=== PATIENT | female | born 2000 | race Caucasian/White ===

== ENCOUNTER 2020-10-24 08:55 | Inpatient (IN) | payer MEDICAID ==
[~2020-10-24] VITALS: Ht 170.2 cm; Wt 95.2 kg
[2020-10-24] MEDS ORDERED: PLEASE ENTER HEIGHT AND WEIGHT MC SCH (10:30)
[2020-10-24] MEDS ORDERED: POLYETHYLENE GLYCOL 17 GM PACKET PO PRN (10:30)
[2020-10-24] MEDS ORDERED: BISACODYL 10 MG SUPP PR PRN (10:30)
[2020-10-24] MEDS ORDERED: DOCUSATE 100 MG CAPSULE PO PRN (10:30)
[2020-10-24] MEDS ORDERED: ONDANSETRON ODT 4 MG PO PRN (10:30)
[2020-10-24 10:55] VITALS: BP 118/80
[2020-10-24] MEDS ORDERED: PRAZ5CAP2 PO (12:25)
[2020-10-24] MEDS ORDERED: ARIP10TA33 PO (12:25)
[2020-10-24] MEDS ORDERED: TRAZ-96 PO (12:25)
[2020-10-24] MEDS ORDERED: hydrOXyzine 10MG TABLET PO PRN (12:30)
[2020-10-24] MEDS ORDERED: HYDROXYZINE PAMOATE 50MG CAP ONE (12:48)
[2020-10-24] MEDS ORDERED: HYDROXYZINE PAMOATE 50MG CAP PO PRN (13:00)
[2020-10-24 19:17] VITALS: BP 113/72
[2020-10-24] MEDS: ARIPIPRAZOLE 10 MG TABLET PO SCH (21:06)
[2020-10-24] MEDS: OXCARBAZEPINE 150 MG TABLET PO SCH (21:06)
[2020-10-24] MEDS: TRAZODONE 50MG TABLET PO SCH (21:06)
[2020-10-24] MEDS: ACETAMINOPHEN 325 MG TABLET PO PRN (21:06)
[2020-10-24] MEDS: PRAZOSIN 5 MG CAPSULE PO SCH (21:06)
[2020-10-25 05:48] LABS: BASOPHILS % (AUTO) 1 % (0-1); EOSINOPHILS % (AUTO) 2 % (1-7); LYMPHOCYTES % (AUTO) 43 % (22-44); MEAN CORPUSCULAR HEMOGLOBIN 29.9 pg (27.0-34.8); MEAN CORPUSCULAR HGB CONC 33.8 g/dL (32.4-35.8); MEAN PLATELET VOLUME 7.3 fL (7.4-10.4); MONOCYTES % (AUTO) 11 % (2-9); NEUTROPHILS % (AUTO) 43 % (42-75); PLATELET COUNT 371 x10^3/uL (130-400); RED BLOOD COUNT 4.63 x10^6/uL (3.82-5.3)
[2020-10-25 06:03] LABS: CHLORIDE 108 mmol/L (98-107)
[2020-10-25 06:32] LABS: ALANINE AMINOTRANSFERASE 28 U/L (12-78); ALBUMIN 3.4 g/dL (3.4-5.0); ALKALINE PHOSPHATASE 51 U/L (45-117); ANION GAP 6 mmol/L (5-15); BILIRUBIN,TOTAL 0.4 mg/dL (0.2-1.0); CALCIUM 9.1 mg/dL (8.5-10.1); CHOL/HDL RATIO 2.8; CHOLESTEROL, TOTAL 161 mg/dL (140-239); CREATININE 0.83 mg/dL (0.55-1.02); HDL CHOL % 35 % (28-40); HDL CHOLESTEROL (DIRECT) 57 mg/dL (40-60); LDL CHOLESTEROL,CALCULATED 87 mg/dL (54-169); LDL/HDL RATIO 1.5 (0.5-3.0); TOTAL PROTEIN 6.8 g/dL (6.4-8.2); TRIGLYCERIDES 83 mg/dL (50-200); VLDL CHOLESTEROL 17 mg/dL (0-25)
[2020-10-25 07:57] VITALS: BP 104/67
[2020-10-25] MEDS: OXCARBAZEPINE 150 MG TABLET PO SCH ×2 (08:23→20:51)
[2020-10-25] MEDS: CYANOCOBALAMIN 1,000 MCG TABLET PO SCH (08:25)
[2020-10-25] MEDS: HYDROXYZINE PAMOATE 50MG CAP PO PRN (11:16)
[2020-10-25 12:51] LABS: HCG UR SG 1.025 (1.003-1.030)
[2020-10-25 12:53] LABS: MICROSCOPIC INDICATED
[2020-10-25 19:28] VITALS: BP 131/67
[2020-10-25] MEDS: ACETAMINOPHEN 325 MG TABLET PO PRN (19:46)
[2020-10-25] MEDS: ARIPIPRAZOLE 10 MG TABLET PO SCH (20:51)
[2020-10-25] MEDS: PRAZOSIN 5 MG CAPSULE PO SCH (20:52)
[2020-10-25] MEDS: TRAZODONE 50MG TABLET PO SCH (21:34)
[2020-10-26 07:21] VITALS: BP 102/65
[2020-10-26] MEDS: CYANOCOBALAMIN 1,000 MCG TABLET PO SCH (09:01)
[2020-10-26] MEDS: OXCARBAZEPINE 150 MG TABLET PO SCH ×2 (09:01→22:05)
[2020-10-26] MEDS: ACETAMINOPHEN 325 MG TABLET PO PRN ×2 (09:01→17:36)
[2020-10-26 10:10] VITALS: BP 102/65
[2020-10-26 19:27] VITALS: BP 109/70
[2020-10-26] MEDS: TRAZODONE 50MG TABLET PO SCH (22:05)
[2020-10-26] MEDS: PRAZOSIN 5 MG CAPSULE PO SCH (22:06)
[2020-10-26] MEDS: ARIPIPRAZOLE 10 MG TABLET PO SCH (22:06)
[2020-10-27 07:44] VITALS: BP 95/60
[2020-10-27] MEDS: ACETAMINOPHEN 325 MG TABLET PO PRN (09:02)
[2020-10-27] MEDS: OXCARBAZEPINE 150 MG TABLET PO SCH ×2 (09:02→21:59)
[2020-10-27] MEDS: CYANOCOBALAMIN 1,000 MCG TABLET PO SCH (09:02)
[2020-10-27 11:43] VITALS: BP 97/65
[2020-10-27 19:47] VITALS: BP 103/58
[2020-10-27] MEDS: TRIAMCINOLONE CRM 0.1%, 15GM TP SCH (21:59)
[2020-10-27] MEDS: TRAZODONE 50MG TABLET PO SCH (21:59)
[2020-10-27] MEDS: ARIPIPRAZOLE 10 MG TABLET PO SCH (21:59)
[2020-10-27] MEDS: PRAZOSIN 5 MG CAPSULE PO SCH (21:59)
[2020-10-28 07:41] VITALS: BP 102/51
[2020-10-28] MEDS: ACETAMINOPHEN 325 MG TABLET PO PRN ×2 (08:46→15:55)
[2020-10-28] MEDS: CYANOCOBALAMIN 1,000 MCG TABLET PO SCH (08:46)
[2020-10-28] MEDS: OXCARBAZEPINE 150 MG TABLET PO SCH ×2 (08:46→22:02)
[2020-10-28] MEDS: TRIAMCINOLONE CRM 0.1%, 15GM TP SCH ×3 (09:00→22:04)
[2020-10-28] MEDS ORDERED: ARIP10TA33 PO (14:35)
[2020-10-28] MEDS ORDERED: Cyanocobalamin PO (14:35)
[2020-10-28] MEDS ORDERED: OXCA150T18 PO (14:35)
[2020-10-28 19:26] VITALS: BP 118/72
[2020-10-28] MEDS: HYDROXYZINE PAMOATE 50MG CAP PO PRN (20:45)
[2020-10-28] MEDS: ARIPIPRAZOLE 10 MG TABLET PO SCH (22:02)
[2020-10-28] MEDS: TRAZODONE 50MG TABLET PO SCH (22:02)
[2020-10-28] MEDS: PRAZOSIN 5 MG CAPSULE PO SCH (22:02)
[2020-10-29 07:24] VITALS: BP 98/68
[2020-10-29] MEDS: OXCARBAZEPINE 150 MG TABLET PO SCH (08:32)
[2020-10-29] MEDS: CYANOCOBALAMIN 1,000 MCG TABLET PO SCH (08:32)
[2020-10-29] MEDS: TRIAMCINOLONE CRM 0.1%, 15GM TP SCH (09:49)
== END 2020-10-29 11:09 | disposition home or self-care (01) | DRG 885 ==
LOC: 3E 10:17
PROVIDERS: ADMIT Psychiatry & Neurology Psychosomatic Medicine; ATTEND Psychiatry & Neurology Psychosomatic Medicine
DX: F25.0 Schizoaffective disorder, bipolar type (principal); R45.850 Homicidal ideations; G43.909 Migraine, unspecified, not intractable, without status migrainosus; F60.3 Borderline personality disorder; L40.9 Psoriasis, unspecified; Z79.899 Other long term (current) drug therapy; Z88.2 Allergy status to sulfonamides; Z88.8 Allergy status to other drugs, medicaments and biological substances
CPT/HCPCS: 36415; 71045; 80053; 80061; 81001; 81025; 82607; 84439; 84443; 85025; 87086; 93005

== ENCOUNTER 2020-10-30 14:41 | Emergency (ER) | payer MEDICAID ==
[~2020-10-30] VITALS: Ht 175.3 cm; Wt 95.2 kg
[~2020-10-30 14:41] MED LIST: ARIP10TA33 PO; Cyanocobalamin PO; OXCA150T18 PO; PRAZ5CAP2 PO; TRAZ-96 PO
--- NOTE | 2020-10-30 14:59 | NUR ---
BIBA AFTER ADMITTING TO THOUGHTS OF WANTING TO KILL HERSELF, WITH NO PLAN, AND THOUGHTS OF WANTING TO KILL HER SISTER IN LAW BY STABBING HER TO WITH A KITCHEN KNIFE. PT RECENTLY D/C FROM [facility] FOR [facility]. HX BIPOLAR, SKIZOPHRENIA. PT ALSO HAS LAC ON L. HEEL FROM GETTING ON AMBULANCE. DR. NIÑO TO BEDSIDE FOR EVALUAITON. Addendum: 10/30/20 at 1514 by ZEESHAN BIBA AFTER ADMITTING TO THOUGHTS OF WANTING TO KILL HERSELF, WITH NO PLAN, AND THOUGHTS OF WANTING TO KILL HER SISTER IN LAW BY STABBING HER TO WITH A KITCHEN KNIFE. PT RECENTLY D/C FROM [facility] FOR SI. HX BIPOLAR, SKIZOPHRENIA. PT ALSO HAS LAC ON L. HEEL FROM GETTING ON AMBULANCE. DR. NIÑO TO BEDSIDE FOR EVALUAITON. SITTER AT BEDSIDE. SAFETY PRECAUTIONS IN PLACE. BELONINGS PLACED IN PT BELONGING BAG, STICKERED WITH PT LABELS, AND PLACED IN LOCKER.
[2020-10-30 16:09] LABS: AMPHETAMINE SCREEN, URINE Negative (Negative); BARBITURATE SCREEN, URINE Negative (Negative); BENZODIAZEPINE SCREEN, URINE Negative (Negative); CANNABINOID SCREEN, URINE Negative (Negative); COCAINE SCREEN, URINE Negative (Negative); METHADONE SCREEN, URINE Negative (Negative); OPIATE SCREEN, URINE Negative (Negative)
[2020-10-30 16:12] LABS: ALBUMIN 3.8 g/dL (3.4-5.0); ANION GAP 5 mmol/L (5-15); CALCIUM 9.4 mg/dL (8.5-10.1); CHLORIDE 108 mmol/L (98-107); CREATININE 0.88 mg/dL (0.55-1.02)
[2020-10-30 16:13] LABS: BASOPHILS % (AUTO) 1 % (0-1); EOSINOPHILS % (AUTO) 1 % (1-7); LYMPHOCYTES % (AUTO) 21 % (22-44); MEAN CORPUSCULAR HEMOGLOBIN 29.6 pg (27.0-34.8); MEAN CORPUSCULAR HGB CONC 33.2 g/dL (32.4-35.8); MEAN PLATELET VOLUME 7.4 fL (7.4-10.4); MONOCYTES % (AUTO) 8 % (2-9); NEUTROPHILS % (AUTO) 71 % (42-75); PLATELET COUNT 382 x10^3/uL (130-400); RED BLOOD COUNT 4.69 x10^6/uL (3.82-5.3)
[2020-10-30 16:15] LABS: SALICYLATE LEVEL < 1.7 mg/dL (2.8-20.0)
[2020-10-30] MEDS ORDERED: TRAZODONE 50MG TABLET PO PRN (16:30)
--- NOTE | 2020-10-30 16:44 | NUR ---
PT PROVIDED WITH DINNER TRAY. MADELINE. SITTING UP IN BED EATING.
--- NOTE | 2020-10-30 17:44 | NUR ---
PT RESTING IN BED. NADN. SITTER AT BEDSIDE. SAFETY PRECAUTIONS IN PLACE.
--- NOTE | 2020-10-30 18:32 | NUR ---
PT RESTING IN BED. NADN. SITTER AT BEDSIDE. SAFETY PRECAUTIONS IN PLACE.
--- NOTE | 2020-10-30 18:50 | NUR ---
REPORT NOC HE[facility] BETANCOURT
--- NOTE | 2020-10-30 19:48 | NUR ---
Chelsi canas in EDM - 10/30/20 at 2034 by [email or web address] GYNY BED PUT INTO ROOM. AWAITING PELVIC EXAM. NADN. VSS. GALICIA AT BEDSIDE. ZAC
[2020-10-30 20:01] VITALS: BP 114/47
--- NOTE | 2020-10-30 20:54 | NUR ---
GAVE REPORT TO CELINA COLLADO.
[2020-10-30] MEDS ORDERED: PRAZOSIN 5 MG CAPSULE PO SCH (21:00)
[2020-10-30] MEDS ORDERED: ARIPIPRAZOLE 10 MG TABLET PO SCH (21:00)
[2020-10-30] MEDS ORDERED: OXCARBAZEPINE 150 MG TABLET PO SCH (21:00)
[2020-10-30] MEDS ORDERED: CARBAMAZEPINE 200 MG TABLET PO SCH (21:00)
== END 2020-10-30 20:00 | disposition home or self-care (01) ==
LOC: ED 15:11
DX: R45.851 Suicidal ideations (principal)
CPT/HCPCS: 36415; 80048; 80299; 80307; 80320; 80329; 82040; 84703; 85025; 99285; G0480

== ENCOUNTER 2020-10-30 19:37 | Inpatient (IN) | payer MEDICAID ==
[~2020-10-30] VITALS: Ht 175.3 cm; Wt 96.0 kg
[2020-10-30 20:00] VITALS: BP 123/77
[2020-10-30] MEDS ORDERED: POLYETHYLENE GLYCOL 17 GM PACKET PO PRN (20:30)
[2020-10-30] MEDS ORDERED: DOCUSATE 100 MG CAPSULE PO PRN (20:30)
[2020-10-30] MEDS ORDERED: BISACODYL 10 MG SUPP PR PRN (20:30)
[2020-10-30] MEDS ORDERED: ONDANSETRON ODT 4 MG PO PRN (20:30)
[2020-10-30] MEDS ORDERED: OXCARBAZEPINE 150 MG TABLET ONE (23:06)
[2020-10-30] MEDS ORDERED: TRAZODONE 50MG TABLET ONE (23:06)
[2020-10-30] MEDS ORDERED: PRAZOSIN 5 MG CAPSULE ONE (23:06)
[2020-10-30] MEDS: ARIPIPRAZOLE 10 MG TABLET PO SCH (23:09)
[2020-10-30] MEDS: OXCARBAZEPINE 150 MG TABLET PO SCH (23:09)
[2020-10-30] MEDS: TRAZODONE 50MG TABLET PO SCH (23:09)
[2020-10-30] MEDS: PRAZOSIN 5 MG CAPSULE PO SCH (23:09)
[2020-10-31 00:12] VITALS: BP 123/77
[2020-10-31 07:31] VITALS: BP 101/63
[2020-10-31] MEDS: OXCARBAZEPINE 150 MG TABLET PO SCH (08:08)
[2020-10-31] MEDS: CYANOCOBALAMIN 1,000 MCG TABLET PO SCH (08:08)
[2020-10-31] MEDS: HYDROXYZINE PAMOATE 50MG CAP PO PRN (15:38)
[2020-10-31 16:38] LABS: HCG UR SG 1.021 (1.003-1.030); MICROSCOPIC NOT IND
[2020-10-31] MEDS ORDERED: OXCARBAZEPINE 150 MG TABLET PO SCH (17:00)
[2020-10-31] MEDS ORDERED: AVIANE PO ONE (17:30)
[2020-10-31 19:16] VITALS: BP 104/68
[2020-10-31] MEDS: AVIANE HOMEMEDPO SCH (20:45)
[2020-10-31] MEDS: PRAZOSIN 5 MG CAPSULE PO SCH (20:46)
[2020-10-31] MEDS: ARIPIPRAZOLE 10 MG TABLET PO SCH (20:46)
[2020-10-31] MEDS: TRAZODONE 50MG TABLET PO SCH (20:46)
[2020-10-31] MEDS: ACETAMINOPHEN 325 MG TABLET PO PRN (20:52)
[2020-11-01 07:36] VITALS: BP 89/53
[2020-11-01] MEDS: CYANOCOBALAMIN 1,000 MCG TABLET PO SCH (09:11)
[2020-11-01] MEDS: HYDROXYZINE PAMOATE 50MG CAP PO PRN (14:10)
[2020-11-01] MEDS: OXCARBAZEPINE 150 MG TABLET PO SCH (17:36)
[2020-11-01 19:43] VITALS: BP 94/60
[2020-11-01] MEDS: ARIPIPRAZOLE 15 MG TABLET PO SCH (20:17)
[2020-11-01] MEDS: PRAZOSIN 5 MG CAPSULE PO SCH (20:18)
[2020-11-01] MEDS: AVIANE HOMEMEDPO SCH (20:18)
[2020-11-01] MEDS: TRAZODONE 50MG TABLET PO SCH (20:52)
[2020-11-02 07:19] VITALS: BP 97/63
[2020-11-02] MEDS: CYANOCOBALAMIN 1,000 MCG TABLET PO SCH (09:07)
[2020-11-02] MEDS: OXCARBAZEPINE 150 MG TABLET PO SCH (17:28)
[2020-11-02 19:19] VITALS: BP 114/75
[2020-11-02] MEDS: ARIPIPRAZOLE 15 MG TABLET PO SCH (20:32)
[2020-11-02] MEDS: AVIANE HOMEMEDPO SCH (20:32)
[2020-11-02] MEDS: PRAZOSIN 5 MG CAPSULE PO SCH (20:32)
[2020-11-02] MEDS: TRAZODONE 50MG TABLET PO SCH (22:24)
[2020-11-03 07:56] VITALS: BP 101/65
[2020-11-03] MEDS: CYANOCOBALAMIN 1,000 MCG TABLET PO SCH (09:55)
[2020-11-03 12:48] VITALS: BP 105/72
[2020-11-03] MEDS ORDERED: LORazepam 1MG TABLET ONE (14:20)
[2020-11-03] MEDS ORDERED: LORazepam 1MG TABLET PO ONE (14:30)
[2020-11-03] MEDS: OXCARBAZEPINE 150 MG TABLET PO SCH (17:34)
[2020-11-03 18:59] VITALS: BP 112/75
[2020-11-03] MEDS: AVIANE HOMEMEDPO SCH (21:00)
[2020-11-03] MEDS: ARIPIPRAZOLE 15 MG TABLET PO SCH (21:13)
[2020-11-03] MEDS: PRAZOSIN 5 MG CAPSULE PO SCH (21:13)
[2020-11-03] MEDS: TRAZODONE 50MG TABLET PO SCH (22:13)
[2020-11-04 07:42] VITALS: BP 98/58
[2020-11-04] MEDS: CYANOCOBALAMIN 1,000 MCG TABLET PO SCH (08:37)
[2020-11-04] MEDS: OXCARBAZEPINE 150 MG TABLET PO SCH (17:44)
[2020-11-04 19:23] VITALS: BP 105/71
[2020-11-04] MEDS: ARIPIPRAZOLE 15 MG TABLET PO SCH (20:19)
[2020-11-04] MEDS: ACETAMINOPHEN 325 MG TABLET PO PRN (20:19)
[2020-11-04] MEDS: PRAZOSIN 5 MG CAPSULE PO SCH (20:19)
[2020-11-04] MEDS: AVIANE HOMEMEDPO SCH (20:26)
[2020-11-04] MEDS: TRAZODONE 50MG TABLET PO SCH (21:04)
[2020-11-04] MEDS ORDERED: ARIP15TA3 PO (21:27)
[2020-11-04] MEDS ORDERED: OXCA150T18 PO (21:27)
[2020-11-04] MEDS ORDERED: Cyanocobalamin PO (21:27)
[2020-11-04] MEDS ORDERED: TRAZ50TA66 PO (21:27)
[2020-11-05 07:22] VITALS: BP 91/59
[2020-11-05] MEDS: CYANOCOBALAMIN 1,000 MCG TABLET PO SCH (08:09)
== END 2020-11-05 11:00 | disposition home or self-care (01) | DRG 885 ==
LOC: 3E 21:21
PROVIDERS: ADMIT Psychiatry & Neurology Psychosomatic Medicine; ATTEND Psychiatry & Neurology Psychosomatic Medicine
DX: F25.0 Schizoaffective disorder, bipolar type (principal); R45.851 Suicidal ideations; Z20.822 Contact with and (suspected) exposure to COVID-19; Z88.2 Allergy status to sulfonamides; Z88.8 Allergy status to other drugs, medicaments and biological substances; F41.9 Anxiety disorder, unspecified; E66.9 Obesity, unspecified; Z68.31 Body mass index [BMI] 31.0-31.9, adult; F60.3 Borderline personality disorder; G43.909 Migraine, unspecified, not intractable, without status migrainosus; L40.9 Psoriasis, unspecified; R45.850 Homicidal ideations
CPT/HCPCS: 36415; 71045; 80048; 80299; 80307; 80320; 80329; 81003; 81025; 82040; 84703; 85025; 87635; 99285; Q0162; G0480